=== PATIENT | female | born 1965 | race Caucasian/White ===

== ENCOUNTER 2022-07-07 10:58 | Emergency (ER) | payer OTHER ==
[~2022-07-07] VITALS: Ht 172.7 cm; Wt 79.5 kg
[~2022-07-07 10:58] MED LIST: OMEP40CA PO; SIMV-43 PO; [UNRECOGNIZED DRUG - CODE] PO
[2022-07-07] MEDS ORDERED: RIZA10TA98 PO (11:20)
[2022-07-07] MEDS ORDERED: ATOR40TA28 PO (11:20)
[2022-07-07] MEDS ORDERED: LEVO75 PO (11:20)
[2022-07-07 12:15] LABS: BASOPHILS % (AUTO) 0.4 % (0.0-2.0); EOSINOPHILS % (AUTO) 2.7 % (1.0-6.0); HEMATOCRIT 39.4 % (36-46); HEMOGLOBIN 13.4 g/dL (12.0-16.0); LYMPHOCYTES # (AUTO) 1.9 K/uL (1.0-4.8); LYMPHOCYTES % (AUTO) 34.8 % (22.0-44.0); MEAN CORPUSCULAR HEMOGLOBIN 30.9 pg (26.0-34.0); MEAN CORPUSCULAR VOLUME 91 fL (80-100); MONOCYTES # (AUTO) 0.5 K/uL (0.1-1.0); MONOCYTES % (AUTO) 9.3 % (2.0-9.0); NEUTROPHILS # (AUTO) 2.9 K/uL (1.8-7.7); NEUTROPHILS % (AUTO) 52.8 % (40.0-70.0); PLATELET COUNT (AUTO) 244 K/uL (150-450); RED BLOOD CELL COUNT(AUTO) 4.33 MIL/uL (4.00-5.20); RED CELL DISTRIBUTION WIDTH 13.7 % (11.5-14.5)
[2022-07-07 12:30] LABS: ANION GAP 5 mmol/L (8-16); CARBON DIOXIDE 30 mmol/L (22-29); CHLORIDE 107 mmol/L (98-107); CREATININE 0.64 mg/dL (0.60-1.30); GLOMERULAR FILTR. RATE CALC > 60 mL/min (>60); GLUCOSE,RANDOM 88 mg/dL (70-110); POTASSIUM 4.2 mmol/L (3.5-5.1); SODIUM SERUM 142 mmol/L (136-145); UREA NITROGEN, BLOOD 18 mg/dL (7-18)
[2022-07-07 12:58] LABS: ALANINE AMINOTRANSFERASE 25 U/L (12-78); ALBUMIN 4.1 g/dL (3.4-5.0); ALKALINE PHOSPHATASE 78 U/L (46-116); ASPARTATE AMINOTRANSFERASE 13 U/L (15-37); BILIRUBIN,TOTAL 0.3 mg/dL (0.1-1.0); TOTAL PROTEIN, SERUM 7.4 g/dL (6.4-8.2)
[2022-07-07 13:10] VITALS: BP 135/87
== END 2022-07-07 13:11 | disposition home or self-care (01) ==
LOC: EMS 11:34
DX: I10 Essential (primary) hypertension (principal); G43.909 Migraine, unspecified, not intractable, without status migrainosus; E03.9 Hypothyroidism, unspecified
CPT/HCPCS: 80053; 84484; 85025; 93005; 99284

== ENCOUNTER 2023-06-28 12:25 | Emergency (ER) | payer OTHER ==
[~2023-06-28] VITALS: Ht 170.2 cm; Wt 79.5 kg
[~2023-06-28 12:25] MED LIST changes: +ATOR40TA28 PO; +LEVO75 PO; -OMEP40CA PO; +RIZA10TA98 PO; -SIMV-43 PO; -[UNRECOGNIZED DRUG - CODE] PO
[2023-06-28 12:28] VITALS: TEMP 97.8
[2023-06-28] MEDS ORDERED: ATOR40TA71 PO (12:31)
[2023-06-28 12:49] LABS: COVID AG,FIA SOURCE NASAL SWAB
[2023-06-28 13:04] LABS: SARS-COV2 (COVID) ANTIGEN,FIA Negative (Negative)
[2023-06-28 13:06] LABS: INFLUENZA TYPE A NEGATIVE FOR TYPE A (NEGATIVE); INFLUENZA TYPE B NEGATIVE FOR TYPE B (NEGATIVE)
[2023-06-28 13:31] VITALS: BP 137/86; PULSE 88; RESP 20
[2023-06-28] MEDS ORDERED: PRED-554 PO (13:56)
[2023-06-28] MEDS ORDERED: GUAIF600 PO (13:56)
== END 2023-06-28 14:16 | disposition home or self-care (01) ==
LOC: EMS 12:26
DX: J40 Bronchitis, not specified as acute or chronic (principal); G43.909 Migraine, unspecified, not intractable, without status migrainosus; E03.9 Hypothyroidism, unspecified; Z20.822 Contact with and (suspected) exposure to COVID-19
CPT/HCPCS: 71045; 87804; 99284